=== PATIENT | female | born 1960 | race Hispanic/Latino ===

== ENCOUNTER → 2023-07-10 | Outpatient (CLI) | payer OTHER ==
[2023-07-10 13:56] LABS: CREATININE 1.3 mg/dL (0.5-1.5)
== END | disposition home or self-care (01) ==
LOC: LAB 12:59
PROVIDERS: ATTEND Surgery
DX: C18.7 Malignant neoplasm of sigmoid colon (principal)
CPT/HCPCS: 36415; 82565; 84520

== ENCOUNTER → 2023-08-14 | Outpatient (CLI) | payer MEDICARE ==
[2023-08-14 15:19] LABS: CREATININE 1.4 mg/dL (0.5-1.5)
== END | disposition home or self-care (01) ==
LOC: LAB 14:04
PROVIDERS: ATTEND Internal Medicine Gastroenterology
DX: C18.7 Malignant neoplasm of sigmoid colon (principal)
CPT/HCPCS: 36415; 82565; 84520

== ENCOUNTER → 2023-08-19 | Outpatient (CLI) | payer MEDICARE, OTHER ==
[~2023-08-19] MED LIST: GADOTERATE MEGLUMINE 10 MMOL/20 ML VIAL IV ONE
== END | disposition home or self-care (01) ==
LOC: RAH 11:16
PROVIDERS: ATTEND Surgery
DX: C18.7 Malignant neoplasm of sigmoid colon (principal); N85.9 Noninflammatory disorder of uterus, unspecified; N85.2 Hypertrophy of uterus; R19.00 Intra-abdominal and pelvic swelling, mass and lump, unspecified site
CPT/HCPCS: 72197; A9575

== ENCOUNTER 2023-09-12 20:39 | Emergency (ER) | payer MEDICARE ==
[~2023-09-12] VITALS: Ht 157.5 cm; Wt 59.4 kg
[2023-09-12 22:34] LABS: APPEARANCE,URINE CLEAR (CLEAR); BILIRUBIN,URINE NEGATIVE (NEGATIVE); COLOR,URINE LIGHT-YELLOW (YELLOW); GLUCOSE, URINE (UA) 150 mg/dL (NEGATIVE); KETONES,URINE NEGATIVE (NEGATIVE); LEUKOCYTE ESTERASE ,URINE 25 Leu/uL (NEGATIVE); NITRATE,URINE NEGATIVE (NEGATIVE); OCCULT BLOOD,URINE LARGE (NEGATIVE); PROTEIN,URINE NEGATIVE (NEGATIVE); UROBILINOGEN,URINE 0.2 mg/dL (0.2-1.0)
[2023-09-12 22:35] LABS: ADD UA MICROSCOPIC YES
[2023-09-12 22:36] LABS: BACTERIA,URINE MOD /HPF (None Seen); MUCUS,URINE RARE LPF (None Seen); SQUAMOUS EPITHELIAL CELL,UR RARE /HPF (0-2)
[2023-09-13] MEDS: PHENAZOPYRIDINE HCL 200 MG TABLET PO ONE (04:06)
[2023-09-13] MEDS: HYDROCODONE/ACETAMINOPHEN 5/325 MG TAB PO ONE (04:06)
[2023-09-13] MEDS: CEPHALEXIN 500 MG CAPSULE PO ONE (04:07)
[2023-09-13 05:40] LABS: BASOPHILS # (AUTO) 0.04 K/uL (0.00-0.20); BASOPHILS % (AUTO) 0.4 % (0.0-5.0); EOSINOPHILS # (AUTO) 0.19 K/uL (0.00-0.70); HEMATOCRIT 35.9 % (36-48); IMMATURE GRANULOCYTE ABSOLUTE 0.03 K/uL (0-1); LYMPHOCYTES # (AUTO) 2.7 K/uL (1.0-4.8); LYMPHOCYTES % (AUTO) 28.2 % (21.0-51.0); MEAN CORPUSCULAR HEMOGLOBIN 28.6 pg (27.0-33.0); MEAN CORPUSCULAR HGB CONC 31.8 g/dL (32.0-36.0); MONOCYTES # (AUTO) 0.8 K/uL (0.1-1.0); NEUTROPHILS # (AUTO) 5.7 K/uL (1.8-7.7); NEUTROPHILS % (AUTO) 61.1 % (40.0-77.0); PLATELET COUNT (AUTO) 306 K/uL (130-400); RED BLOOD CELL COUNT(AUTO) 3.99 MIL/uL (4.00-5.50); RED CELL DISTRIBUTION WIDTH 13.8 % (11.0-15.5); WHITE BLOOD COUNT (AUTO) 9.4 K/uL (4.8-10.8)
[2023-09-13 05:55] LABS: ALBUMIN 3.2 g/dL (3.5-5.0); BILIRUBIN,TOTAL 0.5 mg/dL (0.2-1.0); CREATININE 1.3 mg/dL (0.5-1.5); TOTAL PROTEIN, SERUM 7.6 g/dL (6.0-8.3)
[2023-09-13] MEDS: HYDRALAZINE 20MG/ML VIAL IM ONE (08:07)
[2023-09-13 13:00] VITALS: BP 130/56; PULSE 86; RESP 18; O2SAT 97
== END 2023-09-13 12:51 | disposition home or self-care (01) ==
LOC: EDH 20:39
DX: C78.7 Secondary malignant neoplasm of liver and intrahepatic bile duct (principal); C18.9 Malignant neoplasm of colon, unspecified; N39.0 Urinary tract infection, site not specified; I10 Essential (primary) hypertension; E11.9 Type 2 diabetes mellitus without complications; Z98.890 Other specified postprocedural states
CPT/HCPCS: 99284; 80053; 83690; 85025; 87088; 81001; 36415; 74176; 96372; J0360

== ENCOUNTER 2023-11-15 20:21 | Inpatient (IN) | payer MEDICARE, OTHER ==
[~2023-11-15] VITALS: Ht 152.4 cm; Wt 65.8 kg
[2023-11-15] MEDS: VASOPRESSIN 20 UNITS/ML 1ML VIAL ONE (20:34)
[2023-11-15 20:35] VITALS: PULSE 167; O2SAT 100
[2023-11-15 20:35] LABS: BASOPHILS # (AUTO) 0.01 K/uL (0.00-0.20); BASOPHILS % (AUTO) 0.2 % (0.0-5.0); EOSINOPHILS # (AUTO) 0.01 K/uL (0.00-0.70); EOSINOPHILS % (AUTO) 0.2 % (0.0-8.0); HEMATOCRIT 32.2 % (36-48); IMMATURE GRANULOCYTE ABSOLUTE 0.11 K/uL (0-1); LYMPHOCYTES # (AUTO) 0.8 K/uL (1.0-4.8); LYMPHOCYTES % (AUTO) 13.3 % (21.0-51.0); MEAN CORPUSCULAR HEMOGLOBIN 26.1 pg (27.0-33.0); MEAN CORPUSCULAR HGB CONC 30.4 g/dL (32.0-36.0); MEAN CORPUSCULAR VOLUME 85.6 fL (79-99); MONOCYTES # (AUTO) 0.1 K/uL (0.1-1.0); MONOCYTES % (AUTO) 0.9 % (3.0-13.0); NEUTROPHILS # (AUTO) 4.9 K/uL (1.8-7.7); NEUTROPHILS % (AUTO) 83.5 % (40.0-77.0); NUCLEATED RED BLOOD CELLS 0.9 % (0.0-0.19); PLATELET COUNT (AUTO) 373 K/uL (130-400); RED BLOOD CELL COUNT(AUTO) 3.76 MIL/uL (4.00-5.50); RED CELL DISTRIBUTION WIDTH 15.9 % (11.0-15.5); WHITE BLOOD COUNT (AUTO) 5.9 K/uL (4.8-10.8)
[2023-11-15 20:46] LABS: ABG BASE EXCESS -13.2 mmol/L (-2.0-3.0); ABG HCO3 12.7 mmol/L (21.0-28.0); ABG OXYGEN SATURATION 99.8 % (95.0-99.0); ABG PCO2 30 mmHg (32-45); ABG PH 7.251 (7.35-7.450); CARBON MONOXIDE 0.3; HHb 0.2; PO2, ARTERIAL BG 406.1 mmHg (83.0-108.0)
[2023-11-15] MEDS: PHENYLEPHRINE HCL 10 MG/ML 1ML VIAL IV ONE ×2 (20:50→23:12)
[2023-11-15] MEDS: ASPIRIN 300 MG SUPPOSITORY PR ONE ×2 (20:57→23:10)
[2023-11-15 21:00] LABS: INR 1.21 (0.85-1.15); PROTHROMBIN TIME 14.1 SEC (9.6-11.6)
[2023-11-15 21:01] LABS: CREATININE 2.1 mg/dL (0.5-1.0); PARTIAL THROMBOPLASTIN TIME 24.5 SEC (26.3-35.5); POTASSIUM 3.3 mmol/L (3.5-5.1)
[2023-11-15 21:14] LABS: ALBUMIN 1.7 g/dL (3.5-5.0); BILIRUBIN,TOTAL 0.7 mg/dL (0.2-1.0); TOTAL PROTEIN, SERUM 5.6 g/dL (6.0-8.3)
[2023-11-15 21:20] LABS: BAND NEUTROPHILS % (MANUAL) 23 % (0-2); LYMPHOCYTES % (MANUAL) 22 % (22-44); MONOCYTES % (MANUAL) 3 % (2-9); SEGMENTED NEUTROPHILS % 52 % (40-70); TOTAL CELLS COUNTED 100
[2023-11-15 21:21] LABS: MAN.DIFF COMMENT-IMPRESSION MANUAL DIFFERENTIAL; WBC MORPHOLOGY CONSISTENT W/DIFF
[2023-11-15 21:23] LABS: PLATELET MORPHOLOGY COMMENT PLT CLUMPS PRESENT
[2023-11-15] MEDS ORDERED: ATROPINE 1MG SYG IVP ONE (21:24)
[2023-11-15] MEDS ORDERED: LIDOCAINE HCL 400MG/20ML VIAL ONE (21:25)
[2023-11-15] MEDS ORDERED: IOHEXOL-350 75 ML VIAL IV ONE (21:25)
[2023-11-15] MEDS ORDERED: HEPARIN 10,000 UNIT/10ML (1,000 UNIT/ML) VIAL ONE (21:25)
[2023-11-15] MEDS ORDERED: IOHEXOL 350 MG/ML 100ML INFUS..BTL IV ONE (21:25)
[2023-11-15] MEDS ORDERED: DOPAMINE HCL 400 MG/D5%-WATER 0 ML IV ONE (21:26)
[2023-11-15 21:48] LABS: B-TYPE NATRIURETIC PEPTIDE 15 pg/mL (0-100)
[2023-11-15] MEDS ORDERED: VANCOMYCIN PROTOCOL PER PHARMACY IV SCH (22:30)
[2023-11-15 23:05] LABS: APPEARANCE,URINE CLEAR (CLEAR); BILIRUBIN,URINE NEGATIVE (NEGATIVE); COLOR,URINE YELLOW (YELLOW); GLUCOSE, URINE (UA) 50 mg/dL (NEGATIVE); KETONES,URINE NEGATIVE (NEGATIVE); LEUKOCYTE ESTERASE ,URINE NEGATIVE Leu/uL (NEGATIVE); NITRATE,URINE NEGATIVE (NEGATIVE); OCCULT BLOOD,URINE NEGATIVE (NEGATIVE); PH,URINE 5.5 (5.0-8.0); PROTEIN,URINE 20 mg/dL (NEGATIVE); UROBILINOGEN,URINE 0.2 mg/dL (0.2-1.0)
[2023-11-15] MEDS: VASOPRESSIN 20 UNITS in 0.9%NACL 100ML 100 ML IV SCH (23:07)
[2023-11-15] MEDS: PHENYLEPHRINE HCL 50 MG in 0.9% NACL 250ML 250 ML IV PRN (23:08)
[2023-11-15] MEDS: NOREPINEPHRIN 4MG/NS 250ML 250 ML IV SCH (23:09)
[2023-11-15] MEDS: FENTANYL 1000MCG+NS 100ML 100 ML IV ONE (23:10)
[2023-11-15] MEDS: SODIUM BICARB 8.4% 50ML SYRING 150 MEQ in DEXTROSE 5%-WATER 1,000 ML IVP SCH (23:10)
[2023-11-15] MEDS: 0.9%NACL 1000ML 1,500 ML IV ONE (23:11)
[2023-11-15 23:24] LABS: ADD UA MICROSCOPIC YES
[2023-11-15 23:25] LABS: RBC,URINE 0-1 /HPF (0-1)
[2023-11-15 23:26] LABS: BACTERIA,URINE None Seen /HPF (None Seen); SQUAMOUS EPITHELIAL CELL,UR Rare /HPF (0-2)
[2023-11-15] MEDS: CEFTRIAXONE 2GM VIAL IVPB ONE (23:30)
[2023-11-15] MEDS: CEFEPIME HCL 1 GM VIAL IVPB SCH (23:30)
[2023-11-15] MEDS: SODIUM BICARB 50MEQ 50ML VIAL IV ONE (23:30)
[2023-11-15] MEDS: VANCOMYCIN 1G/250ML KIT 250 ML IV SCH (23:43)
[2023-11-15 23:52] LABS: RAPID GROUP A STREP negative (NEGATIVE)
[2023-11-15 23:58] LABS: INFLUENZA TYPE A NEGATIVE FOR TYPE A (NEG); INFLUENZA TYPE B NEGATIVE FOR TYPE B (NEG)
[2023-11-16] VITALS (62 sets, daily range): BP systolic 86–144; BP diastolic 48–84; PULSE 40–122; RESP 11–33; O2SAT 92–100
[2023-11-16 00:08] LABS: SARS-CoV-2, RNA, NAAT NEGATIVE SARS CoV-2 (NEGATIVE)
[2023-11-16] MEDS: FENTANYL 1000MCG+NS 100ML 100 ML IV SCH (01:56)
[2023-11-16] MEDS: MIDAZOLAM HCL 50 MG in 0.9%NACL 50ML 50 ML IV SCH (01:59)
[2023-11-16] MEDS: ACETAMINOPHEN 650 MG SUPPOSITORY RC ONE ×2 (02:00→02:55)
[2023-11-16] MEDS ORDERED: ONDANSETRON 4MG INJ IV PRN (02:30)
[2023-11-16 03:50] LABS: ABG BASE EXCESS -11.5 mmol/L (-2.0-3.0); ABG HCO3 14.6 mmol/L (21.0-28.0); ABG OXYGEN SATURATION 86.7 % (95.0-99.0); ABG PCO2 33 mmHg (32-45); ABG PH 7.259 (7.35-7.450); CARBON MONOXIDE 0.3; DEVICE COMMENT RR RN JOSE; HHb 13.2; VENT MODE, BG AC (ROOM AIR)
[2023-11-16] MEDS: METRONIDAZOLE 500MG/100ML BAG 100 ML IVPB SCH (05:20)
[2023-11-16] MEDS: HYDROCORTISONE SOD SUCCINATE 100 MG/2 ML VIAL IV SCH (05:20)
[2023-11-16 05:48] LABS: BASOPHILS % (AUTO) 0.4 % (0.0-5.0); EOSINOPHILS # (AUTO) 0.26 K/uL (0.00-0.70); HEMATOCRIT 31.7 % (36-48); IMMATURE GRANULOCYTE ABSOLUTE 2.38 K/uL (0-1); LYMPHOCYTES # (AUTO) 0.9 K/uL (1.0-4.8); LYMPHOCYTES % (AUTO) 3.5 % (21.0-51.0); MEAN CORPUSCULAR HEMOGLOBIN 26.9 pg (27.0-33.0); MEAN CORPUSCULAR HGB CONC 30.6 g/dL (32.0-36.0); MEAN CORPUSCULAR VOLUME 88.1 fL (79-99); MONOCYTES # (AUTO) 0.5 K/uL (0.1-1.0); NEUTROPHILS # (AUTO) 22.5 K/uL (1.8-7.7); NEUTROPHILS % (AUTO) 84.2 % (40.0-77.0); NUCLEATED RED BLOOD CELLS 0.6 % (0.0-0.19); PLATELET COUNT (AUTO) 350 K/uL (130-400); WHITE BLOOD COUNT (AUTO) 26.7 K/uL (4.8-10.8)
[2023-11-16 06:18] LABS: ALBUMIN 1.4 g/dL (3.5-5.0); BILIRUBIN,TOTAL 1.2 mg/dL (0.2-1.0); CREATININE 2.1 mg/dL (0.5-1.0); POTASSIUM 3.5 mmol/L (3.5-5.1); TOTAL PROTEIN, SERUM 4.4 g/dL (6.0-8.3)
[2023-11-16] MEDS: LACTATED RINGERS 1000ML IV SCH (06:30)
[2023-11-16] MEDS: DEXTROSE 50%-WATER 50 ML DISP.SYRIN IV ONE (06:32)
[2023-11-16 08:05] LABS: ABG BASE EXCESS -10.4 mmol/L (-2.0-3.0); ABG HCO3 14.9 mmol/L (21.0-28.0); ABG OXYGEN SATURATION 95.2 % (95.0-99.0); ABG PCO2 31 mmHg (32-45); ABG PH 7.306 (7.35-7.450); CARBON MONOXIDE 0.3; HHb 4.8; PO2, ARTERIAL BG 83.9 mmHg (83.0-108.0); VENT MODE, BG AC (ROOM AIR)
[2023-11-16] MEDS: MIDAZOLAM 50MG-0.9% NS 50ML 50 ML IV SCH (10:46)
[2023-11-16] MEDS: INSULIN HUMULIN R 100 UNIT/ML 3ML SQ SCH (10:57)
[2023-11-16] MEDS ORDERED: GLUCAGON 1MG KIT 1 MG ML IM PRN (11:00)
[2023-11-16] MEDS ORDERED: DEXTROSE 50%-WATER 50 ML DISP.SYRIN IV PRN (11:00)
[2023-11-16] MEDS: SODIUM BICARB 50MEQ 50ML VIAL IV ONE (13:06)
[2023-11-16] MEDS: VASOPRESSIN IV SCH (17:30)
[2023-11-16] MEDS: [UNRECOGNIZED DRUG - OTHER] IV SCH (17:30)
[2023-11-17] VITALS (73 sets, daily range): BP systolic 82–225; BP diastolic 60–98; PULSE 113–132; RESP 16–24; O2SAT 97–99
[2023-11-17] MEDS: NOREPINEPHRIN 4MG/NS 250ML 250 ML IV SCH (01:22)
[2023-11-17 03:39] LABS: EOSINOPHILS # (AUTO) 0.02 K/uL (0.00-0.70); EOSINOPHILS % (AUTO) 0.1 % (0.0-8.0); HEMATOCRIT 35.2 % (36-48); IMMATURE GRANULOCYTE ABSOLUTE 0.09 K/uL (0-1); LYMPHOCYTES # (AUTO) 1.1 K/uL (1.0-4.8); LYMPHOCYTES % (AUTO) 5.6 % (21.0-51.0); MEAN CORPUSCULAR HGB CONC 30.7 g/dL (32.0-36.0); MEAN CORPUSCULAR VOLUME 84.6 fL (79-99); MONOCYTES # (AUTO) 0.8 K/uL (0.1-1.0); MONOCYTES % (AUTO) 3.7 % (3.0-13.0); NEUTROPHILS # (AUTO) 18.5 K/uL (1.8-7.7); NEUTROPHILS % (AUTO) 90.2 % (40.0-77.0); NUCLEATED RED BLOOD CELLS 0.2 % (0.0-0.19); PLATELET COUNT (AUTO) 259 K/uL (130-400); RED BLOOD CELL COUNT(AUTO) 4.16 MIL/uL (4.00-5.50); RED CELL DISTRIBUTION WIDTH 16.5 % (11.0-15.5); WHITE BLOOD COUNT (AUTO) 20.5 K/uL (4.8-10.8)
[2023-11-17 04:14] LABS: ALBUMIN 1.3 g/dL (3.5-5.0); BILIRUBIN,TOTAL 0.7 mg/dL (0.2-1.0); CREATININE 1.9 mg/dL (0.5-1.0); MAGNESIUM 1.8 mg/dL (1.80-2.40); POTASSIUM 3.2 mmol/L (3.5-5.1); TOTAL PROTEIN, SERUM 4.8 g/dL (6.0-8.3)
[2023-11-17] MEDS: ARTIFICIAL TEARS 3.5 GM OINTMENT OU SCH (21:03)
[2023-11-17] MEDS: CHLORHEXIDINE GLUCONATE 15 ML MOUTHWASH MM SCH (21:04)
[2023-11-18] VITALS (109 sets, daily range): BP systolic 86–133; BP diastolic 45–75; PULSE 72–115; RESP 13–25; O2SAT 95–100
[2023-11-18 04:44] LABS: BASOPHILS # (AUTO) 0.01 K/uL (0.00-0.20); BASOPHILS % (AUTO) 0.1 % (0.0-5.0); EOSINOPHILS # (AUTO) 0.03 K/uL (0.00-0.70); EOSINOPHILS % (AUTO) 0.2 % (0.0-8.0); HEMATOCRIT 31.5 % (36-48); IMMATURE GRANULOCYTE ABSOLUTE 0.39 K/uL (0-1); LYMPHOCYTES # (AUTO) 1.8 K/uL (1.0-4.8); LYMPHOCYTES % (AUTO) 11.2 % (21.0-51.0); MEAN CORPUSCULAR HEMOGLOBIN 25.7 pg (27.0-33.0); MEAN CORPUSCULAR HGB CONC 30.8 g/dL (32.0-36.0); MEAN CORPUSCULAR VOLUME 83.6 fL (79-99); MONOCYTES # (AUTO) 0.5 K/uL (0.1-1.0); MONOCYTES % (AUTO) 3.2 % (3.0-13.0); NEUTROPHILS # (AUTO) 13.1 K/uL (1.8-7.7); NEUTROPHILS % (AUTO) 82.8 % (40.0-77.0); NUCLEATED RED BLOOD CELLS 0.8 % (0.0-0.19); PLATELET COUNT (AUTO) 193 K/uL (130-400); RED BLOOD CELL COUNT(AUTO) 3.77 MIL/uL (4.00-5.50); RED CELL DISTRIBUTION WIDTH 16.5 % (11.0-15.5); WHITE BLOOD COUNT (AUTO) 15.8 K/uL (4.8-10.8)
[2023-11-18 05:01] LABS: ALBUMIN 1.1 g/dL (3.5-5.0); BILIRUBIN,TOTAL 0.8 mg/dL (0.2-1.0); CREATININE 2.2 mg/dL (0.5-1.0); POTASSIUM 3.5 mmol/L (3.5-5.1); TOTAL PROTEIN, SERUM 4.7 g/dL (6.0-8.3)
[2023-11-18] MEDS ORDERED: COMPOUND IV REFRIGERATED 1 EACH IVSOLN MISC PRN (12:00)
[2023-11-18] MEDS: ACETAMINOPHEN 325 MG SUPPOSITORY RC PRN (12:00)
[2023-11-18] MEDS ORDERED: COMPOUND IV MISC 1 EACH IVSOLN MISC PRN (12:00)
[2023-11-18] MEDS: DEXMEDETOMIDINE 400MCG/NS100ML IV SCH (12:01)
[2023-11-18] MEDS: HEPARIN 5,000 UNIT VIAL SQ SCH (12:02)
[2023-11-18] MEDS: PANTOPRAZOLE 40 MG/VIAL IVP SCH (12:05)
[2023-11-18] MEDS: MEROPENEM 1 GM in 0.9%NACL 100ML 100 ML IV SCH (12:59)
[2023-11-18] MEDS: DOCUSATE NA 100MG/10ML UDCUP PO SCH (13:00)
[2023-11-18] MEDS: POLYETHYLENE GLYCOL 3350 17 GM POWD.PACK PO SCH (13:00)
[2023-11-18] MEDS: HYDROCORTISONE SOD SUCCINATE 100 MG/2 ML VIAL IV SCH (23:42)
[2023-11-19] VITALS (69 sets, daily range): BP systolic 82–162; BP diastolic 41–115; PULSE 0–120; RESP 0–40; TEMP 99.4; O2SAT 74–99
[2023-11-19 04:21] LABS: ABG BASE EXCESS 0.1 mmol/L (-2.0-3.0); ABG HCO3 22.5 mmol/L (21.0-28.0); ABG OXYGEN SATURATION 92.8 % (95.0-99.0); ABG PCO2 29 mmHg (32-45); CARBON MONOXIDE 0.3; HHb 7.2; PO2, ARTERIAL BG 70.1 mmHg (83.0-108.0); VENT MODE, BG AC VC (ROOM AIR)
[2023-11-19 05:24] LABS: ALBUMIN 0.9 g/dL (3.5-5.0); BILIRUBIN,TOTAL 0.9 mg/dL (0.2-1.0); CREATININE 2.3 mg/dL (0.5-1.0); MAGNESIUM 2.2 mg/dL (1.80-2.40); MEAN CORPUSCULAR HEMOGLOBIN 25.9 pg (27.0-33.0); MEAN CORPUSCULAR VOLUME 83.3 fL (79-99); NUCLEATED RED BLOOD CELLS 2.5 % (0.0-0.19); POTASSIUM 3.1 mmol/L (3.5-5.1); RED BLOOD CELL COUNT(AUTO) 3.48 MIL/uL (4.00-5.50); RED CELL DISTRIBUTION WIDTH 16.5 % (11.0-15.5); TOTAL PROTEIN, SERUM 4.5 g/dL (6.0-8.3)
[2023-11-19] MEDS: OCTREOTIDE ACETATE 100 MCG/ML AMP IV SCH (09:24)
[2023-11-19] MEDS: FUROSEMIDE 40MG VIAL IV SCH (09:25)
[2023-11-19] MEDS: ALBUMIN (HUMAN) 25% 50 ML IV SCH (09:25)
[2023-11-19] MEDS: POTASSIUM CHLORIDE 20MEQ/100ML 100 ML IV ONE (09:30)
[2023-11-19] MEDS: POTASSIUM CHLORIDE 10% ELIXIR 20 MEQ/15 ML UDCUP PO ONE (09:46)
[2023-11-19] MEDS: ACETAMINOPHEN 650 MG/20.3 ML UDCUP PEG ONE (13:31)
[2023-11-19] MEDS ORDERED: ATROPINE SULFATE 5 ML DROPS PO PRN (14:00)
[2023-11-19] MEDS ORDERED: ACETAMINOPHEN 650 MG SUPPOSITORY RC PRN (14:00)
[2023-11-19] MEDS ORDERED: LORAZEPAM 1 MG TABLET PO PRN (14:00)
[2023-11-19] MEDS ORDERED: ONDANSETRON 4MG INJ IVP PRN (14:00)
[2023-11-19] MEDS: MORPHINE 2 MG SYG IVP PRN (15:25)
[2023-11-19] MEDS ORDERED: LORAZEPAM 2 MG/ML 1 ML VIAL IVP PRN (15:30)
[2023-11-19] MEDS ORDERED: LORAZEPAM 2 MG/ML 1 ML VIAL IM PRN (15:30)
== END 2023-11-19 15:57 | DRG 871 ==
LOC: EDH 20:21 → EDHIP 11-16 02:09 → 2CH 11-16 03:56
PROVIDERS: ADMIT Internal Medicine; ATTEND Internal Medicine
PROC: 5A1945Z Respiratory Ventilation, 24-96 Consecutive Hours (ICD-10-PCS; principal; 2023-11-15)
PROC: 0BH17EZ Insertion of Endotracheal Airway into Trachea, Via Natural or Artificial Opening (ICD-10-PCS; 2023-11-15)
PROC: 0JH63WZ Insertion of Totally Implantable Vascular Access Device into Chest Subcutaneous Tissue and Fascia, Percutaneous Approach (ICD-10-PCS; 2023-11-15)
DX: A41.50 Gram-negative sepsis, unspecified (principal); E43 Unspecified severe protein-calorie malnutrition; G92.8 Other toxic encephalopathy; J96.00 Acute respiratory failure, unspecified whether with hypoxia or hypercapnia; R65.21 Severe sepsis with septic shock; J15.69 Pneumonia due to other Gram-negative bacteria; K72.00 Acute and subacute hepatic failure without coma; N17.0 Acute kidney failure with tubular necrosis; E87.20 Acidosis, unspecified; N18.4 Chronic kidney disease, stage 4 (severe); E87.1 Hypo-osmolality and hyponatremia; I31.39 Other pericardial effusion (noninflammatory); Z66 Do not resuscitate; Z20.822 Contact with and (suspected) exposure to COVID-19; R74.8 Abnormal levels of other serum enzymes; B96.1 Klebsiella pneumoniae [K. pneumoniae] as the cause of diseases classified elsewhere; D63.8 Anemia in other chronic diseases classified elsewhere; E11.22 Type 2 diabetes mellitus with diabetic chronic kidney disease; I12.9 Hypertensive chronic kidney disease with stage 1 through stage 4 chronic kidney disease, or unspecified chronic kidney disease; E87.6 Hypokalemia; Z51.5 Encounter for palliative care; Z85.038 Personal history of other malignant neoplasm of large intestine; Z92.21 Personal history of antineoplastic chemotherapy; Z93.3 Colostomy status
CPT/HCPCS: 31500; 36415; 36600; 70450; 71045; 76700; 80053; 80202; 81001; 82010; 82140; 82435; 82550; 82803; 82947; 82948; 83605; 83735; 83880; 84132; 84145; 84295; 84484; 85018; 85025; 85027; 85610; 85730; 87040; 87071; 87077; 87186; 87205; 87635; 87641; 87804; 87880; 93005; 93306; 93356; 94002; 94003; 96365; 96366; 99291; C9113; G0378; J0461; J0692; J0696; J1265; J1644; J1720; J1940; J2185; J2270; J2354; J2371; J3010; J3370; J3490; J7030; J7050; J7070; P9047; Q9967